=== PATIENT | male | born 2005 | race Caucasian/White ===

== ENCOUNTER 2023-02-10 19:49 | Emergency (ER) | payer OTHER, MEDICAID, SELFPAY ==
[2023-02-10 19:56] VITALS: BP 148/73; PULSE 110; RESP 18; TEMP 36.1; O2SAT 100; BMI 20.4
== END 2023-02-10 21:55 | disposition left against medical advice (07) ==
PROVIDERS: Emergency Provider Emergency Medicine; PCP Pediatrics
DX: M25.572 Pain in left ankle and joints of left foot (principal); S99.912A Unspecified injury of left ankle, initial encounter; X58.XXXA Exposure to other specified factors, initial encounter; Y93.9 Activity, unspecified; Y92.9 Unspecified place or not applicable; Y99.9 Unspecified external cause status
CPT/HCPCS: 73600; 73620; 99281; 99283

== ENCOUNTER 2024-05-18 15:19 | Outpatient (REF) | payer OTHER, MEDICAID, SELFPAY ==
[2024-05-18 15:22] LABS: MANUAL DIFF FLAG NO
[2024-05-18 15:25] LABS: Basophils Percent Auto 0.5 % (0-2); Eosinophils Absolute Auto 0.1 X10*3/uL (0.0-0.4); Eosinophils Percent Auto 2.1 % (0-4); Hematocrit 39.7 % (42.0-52.0); Hemoglobin 14.3 g/dl (14.0-18.0); Imm Gran Abs Auto 0.01 X10*3/uL (0.00-0.03); Imm Gran Pct Auto 0.2 % (0.0-0.4); Lymphocytes Percent Auto 32.5 % (20-40); Mean Corpuscular Hemoglobin 31.6 pg (27.0-33.0); Mean Corpuscular Volume 87.8 fL (80.0-98.0); Mean Platelet Volume 10.1 fL (9.4-12.4); Monocytes Absolute Auto 0.6 X10*3/uL (0.1-1.2); Monocytes Percent Auto 9.8 % (2-11); Neutrophils Absolute Auto 3.4 x10*3/uL (2.0-8.3); Neutrophils Percent Auto 54.9 % (45-73); Platelet Count 289 X10*3/uL (160-400); Red Blood Count 4.52 X10*6/uL (4.60-5.80); Red Cell Distribution Width 11.1 % (11.0-16.0); White Blood Count 6.1 X10*3/uL (4.8-10.8)
[2024-05-18 15:27] LABS: Appearance Urine Clear; Color Urine Yellow; Glucose Urine UA Negative (Negative); Leukocyte Esterase Urine Negative (Negative); Nitrite Urine Negative (Negative); PH 5.5 (5.0-9.0); Urine Blood Negative (Negative); Urine Ketones Negative (Negative); Urine Protein Negative (Neg-Trace)
[2024-05-18 15:32] LABS: Bacteria Urine None Seen (None Seen); Hyaline Casts Urine 0-2 /LPF (0-2); RBC Urine 0-2 /HPF (0-2); Squamous Epithelial Cell Urine 0-2 /HPF (0-2); WBC Urine 0-5 /HPF (0-5)
[2024-05-18 15:42] LABS: Alanine Aminotransferase 11 U/L (0-40); Albumin Level 4.4 g/dL (3.5-5.0); Alkaline Phosphatase 55 U/L (39-117); Anion Gap 11 (12-20); Aspartate Amino Transferase 14 U/L (5-37); Bilirubin Total 1.7 mg/dL (0.0-1.0); Blood Urea Nitrogen 10 mg/dL (9-16); Calcium 9.4 mg/dL (8.4-10.2); Carbon Dioxide 28 mmol/L (22-29); Chloride 104 mmol/L (96-108); Cholesterol 125 mg/dL (<200); Estimated Glomerular Filt Rate > 60; Glucose Fasting 101 mg/dL (60-99); HDL Cholesterol 39 mg/dL (>40); LDL Cholesterol Calculated 75 mg/dL (<100); Potassium 3.4 mmol/L (3.3-5.1); Sodium 140 mmol/L (135-145); Total Protein 7.3 g/dL (6.5-8.0); Triglycerides 55 mg/dL (<150)
== END 2024-05-18 15:20 | disposition home or self-care (01) ==
LOC: HO.LNP 15:19
PROVIDERS: Visit Provider Internal Medicine
DX: Z00.00 Encounter for general adult medical examination without abnormal findings (principal)
CPT/HCPCS: 80053; 80061; 81001; 85025

== ENCOUNTER 2025-05-14 10:43 | Outpatient (REF) | payer SELFPAY ==
--- OUTSIDE RECORDS SUMMARY | 2024-05-18 09:45 | XMS_ITS ---
Author Organization Ernesto Horne MD Address [address] [place], [place] [phone] Care Team Providers Care Director Data Analytics Name Role Phone Ernesto Horne Primary Care Provider Allergies Allergen (clinical drug ingredient) Drug/Non Drug Allergy documented on EMR Reaction Allergy Type Onset Date Status sulfamethoxazole / trimethoprim Bactrim GI Upset Drug Allergy Active Results Component Value Reference Range Notes Complete Blood Count Auto Di ff Reviewed date:05/18/2024 04:47:04 PM Interpretation: Performing Lab:[facility], [address] [place] [phone] Notes/Report: White Blood Count 6.1 4.8-10.8 X10*3/uL Red Blood Count 4.52 4.60-5.80 X10*6/uL Hemoglobin 14.3 14.0-18.0 g/dl Hematocrit 39.7 42.0-52.0 % Mean Corpuscular Volume 87.8 80.0-98.0 fL Mean Corpuscular Hemoglobin 31.6 27.0-33.0 pg Mean Corpuscular HGB Conc 36.0 31.0-36.0 g/dl Red Cell Distribution Width 11.1 11.0-16.0 % Platelet Count 289 160-400 X10*3/uL Mean Platelet Volume 10.1 9.4-12.4 fL Neutrophils Percent Auto 54.9 45-73 % Imm Gran Pct Auto 0.2 0.0-0.4 % Lymphocytes Percent Auto 32.5 20-40 % Monocytes Percent Auto 9.8 2-11 % Eosinophils Percent Auto 2.1 0-4 % Basophils Percent Auto 0.5 0-2 % NRBC Pct Auto 0.0 0.0-0.2 /100WBC Neutrophils Absolute Auto 3.4 2.0-8.3 x10*3/u L Imm Gran Abs Auto 0.01 0.00-0.03 X10*3/uL Lymphocytes Absolute Auto 2.0 1.2-4.9 X10*3/u L Monocytes Absolute Auto 0.6 0.1-1.2 X10*3/uL Eosinophils Absolute Auto 0.1 0.0-0.4 X10*3/u L Basophils Absolute Auto 0.0 0.0-0.2 X10*3/uL NRBC Abs Auto 0.000 0.0-0.012 X10*3/uL Urinalysis and Microscopic Reviewed date:05/18/2024 04:46:44 PM Interpretation: Performing Lab:[facility], [address] [place] [phone] Notes/Report: Color Urine Yellow Appearance Urine Clear PH 5.5 5.0-9.0 Glucose Urine UA Negative Negative mg/dL Urine Blood Negative Negative Specific [place] - Urine 1.020 1.005-1.025 Urine Protein Negative Neg-Trace mg/dL Urine Ketones Negative Negative mg/dL Nitrite Urine Negative Negative Leukocyte Esterase Urine Negative Negative RBC Urine 0-2 0-2 /HPF WBC Urine 0-5 0-5 /HPF Squamous Epithelial Cell Urine 0-2 0-2 /HPF Bacteria Urine None Seen None Seen Hyaline Casts Urine 0-2 0-2 /LPF Comprehensive [place]. Panel Fa Reviewed date:05/18/2024 04:47:35 PM Interpretation: Performing Lab:[facility], [address] [place] [phone] Notes/Report: Sodium 140 135-145 mmol/L Potassium 3.4 3.3-5.1 mmol/L Chloride 104 96-108 mmol/L Carbon Dioxide 28 22-29 mmol/L Anion Gap 11 12-20 Blood Urea Nitrogen 10 9-16 mg/dL Creatinine 1.00 0.5-1.4 mg/dL Estimated Glomerular Filt Rate > 60 NOTE: For -[place] individuals, multiply the result by 1.210. Chronic Kidney Disease: Estimated GFR < 60 mL/min/1.73m2 Severe Kidney Disease: Estimated GFR < 15 mL/min/1.73m2 Glucose Fasting 101 60-99 mg/dL A fasting glucose from 100-125 mg/dl is considered impaired (pre-diabetes). Calcium 9.4 8.4-10.2 mg/dL Bilirubin Total 1.7 0.0-1.0 mg/dL Aspartate Amino Transferase 14 5-37 U/L Alanine Aminotransferase 11 0-40 U/L Total Protein 7.3 6.5-8.0 g/dL Albumin Level 4.4 3.5-5.0 g/dL Alkaline Phosphatase 55 39-117 U/L Lipid Panel Reviewed date:05/18/2024 04:46:18 PM Interpretation: Performing Lab:[facility], [address] [place] [phone] Notes/Report: Triglycerides 55 <150 mg/dL Desirable Triglyceride: less than 150 mg/dL Borderline High Triglyceride 150-199 mg/dL High Triglyceride: 200-499 mg/dL Very High Triglyceride: greater than or equal to 5OO mg/dL Cholesterol 125 <200 mg/dL Desirable Cholesterol: less than 200 mg/dL Borderline High Cholesterol: 200-239 mg/dL High Cholesterol: greater than 239 mg/dL LDL Cholesterol Calculated 75 <100 mg/dL Desirable LDL: less than 100 mg/dL Near Optimal/Above Optimal LDL: 110-129 mg/dL Borderline High LDL: 130-159 mg/dL High LDL: 160-189 mg/dL Very High LDL: greater than or equal to 190 mg/dL HDL Cholesterol 39 >40 mg/dL Desirable HDL: greater than 40 mg/dL Note: This HDL assay may give artificially low results in patients with liver disease. REASON FOR VISIT New PT/ est care/ needs PE Medications Medication SIG (Take, Route, Fr equency, Duration) Notes Start Date End Date Status Tylenol 325 MG 1 tablet as needed Orally every 6 hrs Active Social History Tobacco Use: Social History Observation Description Date Details (start date - stop date) Never Smoker NA - NA Tobacco Use/Smoking Question Answer Notes Patient is a nonsmoker Additional Findings: Tobacco Non-User Cu rrent non-smoker, currently using no form of tobacco Alcohol Screen Question Answer Notes Did you have a drink containing alcohol in the p ast year? No Points 0 Interpretation Negative Problems No Known Problems Vital Signs Blood pressure systolic 122 mm Hg 05/18/20 24 Blood pressure diastolic 70 mm Hg 10/07/2 024 Height 74 in 05/18/2024 Weight 161 lbs 05/18/2024 BMI 20.67 kg/m2 05/18/2024 Encounters Encounter Location Date Provider Diagnosis Ernesto Horne MD [address] [place] [address] Drive [address] [place], [place] [phone] 05/18/2024 Ernesto Horne Physical exam, annual Z00.00 Assessments Encounter Date Diagnosis (ICD Code) Assessment Notes Treatment Notes Treatment Clinical Notes Section Notes 05/18/2024 Physical exam, annual (ICD-10 - Z00.00) patient here to establish relationship with new doctor. has never had any medical problems and is without complaints. Plan Of Treatment Treatment Notes Assessment Notes Physical exam, annual patient here to es tablish relationship with new doctor. has never had any medical problems and is without complaints. Next Appt Details Follow Up: 1 Year, Reason: Provider Name:Ernesto Liz ier, 05/27/2025 11:00:00 AM, [address] [place] [address], [address], [place], [place], [phone], Progress Notes * Hank WATTERSDOB: [birth year] (19 yo M)Acc No.[id number]:05/18/2024 Progress Notes Patient: Hank Brown Provider: Suzette Horne MD :2005 A ge:18 Y S ex:Male Date:05/18/2024 Address:[address] [place], [place] [phone] Subjective: * Chief Complaints: * N ew PT/ est care/ needs PE * HPI: D epression Screening: PHQ-9 L ittle interest or pleasure in doing things N ot at all, F eeling down, depressed, or hopeless N ot at all, T rouble falling or staying asleep, or sleeping too much N ot at all, F eeling tired or having little energy N ot at all, P oor appetite or overeating N ot at all, F eeling bad about yourself or that you are a failure, or have let yourself or your family down N ot at all, T rouble concentrating on things, such as reading the newspaper or watching television N ot at all, M oving or speaking so slowly that other people could have noticed; or the opposite, being so fidgety or restless that you have been moving around a lot more than usual N ot at all, T houghts that you would be better off or of hurting yourself in some way N ot at all, T otal Score 0 . S SANDER Questions: SDOH Questions I n the past year have you been worried about losing housing? N o, I n the past year have you or any family members you live with been unable to get any of the following when it was really needed? Check all that apply: N one. C ommunication Needs: Communication Needs D oes the patient have a hearing impairment N o, D oes the patient have a vision impairment? N o, D oes the patient have a cognition impairment? N o. S ymptom(s): patient is a 18 yo male , new patient, here to [facility], no medical problems, needs PE. * ROS: G eneral/Constitutional: Patient denies f atigue , headache. C hange in appetite?denies. C hills d enies. F ever d enies. O phthalmologic: Blurred vision d enies. D ischarge d enies. P ain d enies. E NT: Patient denies d ecreased sense of smell , any loss of taste , sore throat. D ecreased hearing d enies. S ore throat d enies. S wollen glands d enies. E ndocrine: Cold intolerance d enies. E xcessive thirst d enies. H eat intolerance d enies. W eight loss d enies. R espiratory: Cough d enies. S hortness of breath at rest d enies. S hortness of breath with exertion d enies. W heezing d enies. C ardiovascular: Chest pain at rest d enies. C hest pain with exertion?denies. I rregular heartbeat d enies. S hortness of breath d enies. ? G astrointestinal: Abdominal pain d enies. C hange in bowel habits d enies. D iarrhea d enies. N ausea d enies. R ectal bleeding d enies. V omiting d enies . G enitourinary: Blood in urine d enies. D ifficulty urinating d enies. F requent urination d enies. M usculoskeletal: Patient denies m uscle aches. P ainful joints d enies. W eakness d enies. P eripheral Vascular: Patient denies r ed and blue toes. S kin: Dry skin d enies. I tching d enies. D enies?Mole(s), changes in moles, new moles or any lesions of concern. D enies P hotosensitivity. R marilin d enies. N eurologic: Dizziness d enies. F ainting d enies. H eadache?denies. * Medical History: * Surgical History: * Hospitalization/Major Diagno stic Procedure: * Family History: F ather: alive 49 yrs. M other: alive 50 yrs. 1 brother(s) . . ather Healthy Mother Healthy. * Social History: T obacco Use: T obacco Use/Smoking P atient is a n onsmoker, A dditional Findings: Tobacco Non-User C urrent non-smoker, currently using no form of tobacco. D rugs/Alcohol: A lcohol Screen D id you have a drink containing alcohol in the past year? N o, P oints 0 , I nterpretation N egative. M iscellaneous: n o Children. no Exercise. Marital status: single. no Travel outside of the [place]. * Medications: T akingTylenol 325 MG Tablet 1 tablet as needed Orally every 6 hrsMedication List reviewed and reconciled with the patientTaking Tylenol 325 MG Tablet 1 tablet as needed Orally every 6 hrsMedication List reviewed and reconciled with the patient * Allergies: B actrim: GI Upsetyes[Allergies Verified] Objective: * Vitals: H t:74, Wt:161, BMI:20.67, BP:122/70. * Examination: G eneral Examination: GENERAL APPEARANCE: w ell developed, well nourished, in no acute distress. HEAD: n ormocephalic, atraumatic. EYES: p upils equal, round, reactive to light and accommodation, sclera non-icteric. EARS: n ormal. ORAL CAVITY: m ucosa moist. THROAT: c lear. NECK/THYROID: n kiara supple, full range of motion, no cervical lymphadenopathy, no bruits. SKIN: w arm and dry, no suspicious lesions. HEART: r egular rate and rhythm, S1, S2 normal, no murmurs.? LUNGS: c lear to auscultation bilaterally. ABDOMEN: s oft, nontender, nondistended, bowel sounds present, normal, no organomegaly , no masses palpable. RECTAL EXAM: n ot examined. MALE GENITOURINARY: c ircumcised, no penile lesions or discharge, testes descended bilaterally. EXTREMITIES: n o clubbing, cyanosis, or edema. NEUROLOGIC: n onfocal, motor strength normal upper and lower extremities, sensory exam intact. Assessment: * Assessment: 1. P hysical exam, annual - Z00.00 (Primary) Plan: * Treatment: ?LAB: Lipid Panel Notes: patient here to establish relationship with new doctor. has never had any medical problems and is without complaints.?? * Procedure Codes: 3 6415 VENIPUNCT, ROUTINE* * Follow Up: 1 Year * * Sign off status: Completed true * Provider: Suzette Horne MD Date: Generated for Deneen villanueva/Matthew/Robitting on: 11:43 AM EDT History and Physical Notes * HPI (History of Present Illness) Category Sub-Category Detail Notes Category Not es Symptom(s) patient is a 18 yo male , new patient, here to [facility], no medical problems, needs PE Depression Screening PHQ-9 Little inte rest or pleasure in doing things: Not at all Feeling down, depressed, or hopeless: No t at all Trouble falling or staying asleep, or sl eeping too much: Not at all Feeling tired or having little energy: N ot at all Poor appetite or overeating: Not at all Feeling bad about yourself o r that you are a failure, or have let yourself or your family down: Not at all Trouble concentrating on thi ngs, such as reading the newspaper or watching television: Not at all Moving or speaking so slowly that other people could have noticed; or the opposite, being so fidgety or restless that you have been moving around a lot more than usual: Not at all Thoughts that you would be b sallie off or of hurting yourself in some way: Not at all Total Score: 0 SDOH Questions SDOH Questions In the past year have you been worried about losing housing?: No In the past year have you or any family members you live with been unable to get any of the following when it was really needed? Check all that apply:: None Communication Needs Communication Needs Does the patient have a hearing impairment: No Does the patient have a vision impairmen t?: No Does the patient have a cognition impair ment?: No Examination Category Sub-Category Detail Notes Category Not es General Examination GENERAL APPEARANCE: well dev eloped, well nourished, in no acute distress HEAD: normocephalic, atrau matic EYES: pupils equal, round, reactive to light and accommodation, sclera non-icteric EARS: normal THROAT: clear NECK/THYROID: neck supple, full ra nge of motion, no cervical lymphadenopathy, no bruits HEART: regular rate and rhy thm, S1, S2 normal, no murmurs LUNGS: clear to auscultatio n bilaterally ABDOMEN: soft, nontender, non distended, bowel sounds present, normal, no organomegaly , no masses palpable NEUROLOGIC: nonfocal, motor stre ngth normal upper and lower extremities, sensory exam intact SKIN: warm and dry, no selvin picious lesions EXTREMITIES: no clubbing, cyanosi s, or edema MALE GENITOURINARY: circumcised, no peni le lesions or discharge, testes descended bilaterally RECTAL EXAM: not examined ORAL CAVITY: mucosa moist
--- OUTSIDE RECORDS SUMMARY | 2025-05-14 03:15 | XMS_ITS ---
Author Organization Ernesto Horne MD Address [address] [place], [place] [phone] Care Team Providers Care Coremaker Floor Name Role Phone Ernesto Horne Primary Care Provider Results Component Value Reference Range Notes Complete Blood Count Auto Di ff (Not yet reviewed by provider) Interpretation: Performing Lab:[facility], [address] [place] [phone] Notes/Report: White Blood Count 4.8 4.8-10.8 X10*3/uL Red Blood Count 4.56 4.60-5.80 X10*6/uL Hemoglobin 14.3 14.0-18.0 g/dl Hematocrit 39.8 42.0-52.0 % Mean Corpuscular Volume 87.3 80.0-98.0 fL Mean Corpuscular Hemoglobin 31.4 27.0-33.0 pg Mean Corpuscular HGB Conc 35.9 31.0-36.0 g/dl Red Cell Distribution Width 11.2 11.0-16.0 % Platelet Count 243 160-400 X10*3/uL Mean Platelet Volume 10.7 9.4-12.4 fL Neutrophils Percent Auto 44.0 45-73 % Imm Gran Pct Auto 0.0 0.0-0.4 % Lymphocytes Percent Auto 41.2 20-40 % Monocytes Percent Auto 11.3 2-11 % Eosinophils Percent Auto 2.9 0-4 % Basophils Percent Auto 0.6 0-2 % NRBC Pct Auto 0.0 0.0-0.2 /100WBC Neutrophils Absolute Auto 2.1 2.0-8.3 x10*3/u L Imm Gran Abs Auto 0.00 0.00-0.03 X10*3/uL Lymphocytes Absolute Auto 2.0 1.2-4.9 X10*3/u L Monocytes Absolute Auto 0.5 0.1-1.2 X10*3/uL Eosinophils Absolute Auto 0.1 0.0-0.4 X10*3/u L Basophils Absolute Auto 0.0 0.0-0.2 X10*3/uL NRBC Abs Auto 0.000 0.0-0.012 X10*3/uL Lipid Panel Reviewed date:05/14/2025 11:38:37 AM Interpretation: Performing Lab:[facility], [address] [place] [phone] Notes/Report: Triglycerides 91 <150 mg/dL Desirable Triglyceride: less than 150 mg/dL Borderline High Triglyceride 150-199 mg/dL High Triglyceride: 200-499 mg/dL Very High Triglyceride: greater than or equal to 5OO mg/dL Cholesterol 128 <200 mg/dL Desirable Cholesterol: less than 200 mg/dL Borderline High Cholesterol: 200-239 mg/dL High Cholesterol: greater than 239 mg/dL LDL Cholesterol Calculated 70 <100 mg/dL Desirable LDL: less than 100 mg/dL Near Optimal/Above Optimal LDL: 110-129 mg/dL Borderline High LDL: 130-159 mg/dL High LDL: 160-189 mg/dL Very High LDL: greater than or equal to 190 mg/dL HDL Cholesterol 40 >40 mg/dL Desirable HDL: greater than 40 mg/dL Note: This HDL assay may give artificially low results in patients with liver disease. UA ClnCatch+Micro w/rflx Cul t Reviewed date:05/14/2025 11:42:30 AM Interpretation: Performing Lab:[facility], [address] [place] [phone] Notes/Report: Urine, Clean Catch Color Urine Yellow Appearance Urine Clear PH 6.0 5.0-9.0 Glucose Urine UA Negative Negative mg/dL Urine Blood Negative Negative Specific [place] - Urine 1.020 1.005-1.025 Urine Protein Negative Neg-Trace mg/dL Urine Ketones Negative Negative mg/dL Nitrite Urine Negative Negative Leukocyte Esterase Urine Negative Negative RBC Urine 0-2 0-2 /HPF WBC Urine 0-5 0-5 /HPF Squamous Epithelial Cell Urine 0-2 0-2 /HPF Bacteria Urine None Seen None Seen Hyaline Casts Urine 0-2 0-2 /LPF REASON FOR VISIT FASTING LABS Problems No Known Problems Encounters Encounter Location Date Provider Diagnosis Ernesto Horne MD [address] [place] [address] [place] [phone] 05/14/2025 Ernesto Horne Blood tests for routine general physical examination Z00.00 Assessments Encounter Date Diagnosis (ICD Code) Assessment Notes Treatment Notes Treatment Clinical Notes Section Notes 05/14/2025 Blood tests for routine general physical examination (ICD-10 - Z00.00) Plan Of Treatment Pending Test Test Name Order Date Complete Blood Count Auto Diff Comprehensive [place]. Panel Fast 5 Next Appt Details Provider Name:Ernesto Liz ier, 05/27/2025 11:00:00 AM, [address] [place] [address], Suite [facility], [place], [place], [phone], Progress Notes * Hank WATTERSDOB: [birth year] (19 yo M)Acc No.[id number]:05/14/2025 Progress Note Patient: Hank HUTSON Provider: Suzette Horne MD :2005 A ge:19 Y S ex:Male Date:05/14/2025 Address:[address] [place], [place] [phone] Subjective: * Chief Complaints: * 1 . FASTING LABS. * Medical History: Objective: * Vitals: Assessment: * Assessment: 1. B lood tests for routine general physical examination - Z00.00 (Primary) Plan: * Treatment: * Procedure Codes: 3 6415 VENIPUNCT, ROUTINE* * * The named appointment provid er may or may not be the originator of this progress note, and it is not deemed complete until electronically signed by the appointment provider. Sign off status: Pending * Provider: Suzette Horne MD Date: 1 Generated for Deneen villanueva/Matthew/eTransmitting on: 1 11:43 AM EDT
[2025-05-14 10:45] LABS: MANUAL DIFF FLAG NO
[2025-05-14 10:54] LABS: Hematocrit 39.8 % (42.0-52.0); Hemoglobin 14.3 g/dl (14.0-18.0); Imm Gran Abs Auto 0.00 X10*3/uL (0.00-0.03); Imm Gran Pct Auto 0.0 % (0.0-0.4); Lymphocytes Absolute Auto 2.0 X10*3/uL (1.2-4.9); Mean Corpuscular HGB Conc 35.9 g/dl (31.0-36.0); Mean Corpuscular Hemoglobin 31.4 pg (27.0-33.0); Mean Corpuscular Volume 87.3 fL (80.0-98.0); NRBC Abs Auto 0.000 X10*3/uL (0.0-0.012); NRBC Pct Auto 0.0 /100WBC (0.0-0.2); Platelet Count 243 X10*3/uL (160-400); Red Blood Count 4.56 X10*6/uL (4.60-5.80); White Blood Count 4.8 X10*3/uL (4.8-10.8)
[2025-05-14 11:13] LABS: Appearance Urine Clear; Glucose Urine UA Negative (Negative); PH 6.0 (5.0-9.0); Specific Gravity - Urine 1.020 (1.005-1.025)
[2025-05-14 11:36] LABS: Alanine Aminotransferase 22 U/L (0-40); Albumin Level 4.8 g/dL (3.5-5.0); Alkaline Phosphatase 58 U/L (39-117); Anion Gap 12 (12-20); Aspartate Amino Transferase 23 U/L (5-37); Blood Urea Nitrogen 13 mg/dL (9-16); Calcium 9.0 mg/dL (8.4-10.2); Carbon Dioxide 25 mmol/L (22-29); Chloride 106 mmol/L (96-108); Cholesterol 128 mg/dL (<200); Estimated Glomerular Filt Rate > 60; HDL Cholesterol 40 mg/dL (>40); Potassium 3.5 mmol/L (3.3-5.1); Sodium 139 mmol/L (135-145); Total Protein 7.2 g/dL (6.5-8.0); Triglycerides 91 mg/dL (<150)
--- OUTSIDE RECORDS SUMMARY | 2025-05-14 11:43 | XMS_ITS | Patient Health Record ---
Author Organization Ernesto Horne MD Address [address] [place], [place] [phone] Care Team Providers Care Dealer Compliance Representative Name Role Phone Ernesto Horne Primary Care Provider [phone] Allergies Allergen (clinical drug ingredient) Drug/Non Drug Allergy documented on EMR Reaction Allergy Type Onset Date Status sulfamethoxazole / trimethoprim Bactrim GI Upset Drug Allergy Active Results Component Value Reference Range Notes Complete Blood Count Auto Di ff Reviewed date:05/18/2024 04:47:04 PM Interpretation: Performing Lab:[facility], [address] [place] [phone] Notes/Report: White Blood Count 6.1 4.8-10.8 X10*3/uL [...] Microscopic Reviewed date:05/18/2024 04:46:44 PM Interpretation: Performing Lab:[facility], [address] [place] [phone] Notes/Report: Color Urine Yellow Appearance Urine Clear PH 5.5 5.0-9.0 Glucose Urine UA Negative Negative mg/dL Urine Blood Negative Negative Specific [place] - Urine 1.020 1.005-1.025 Urine Protein Negative Neg-Trace mg/dL Urine Ketones Negative Negative mg/dL Nitrite Urine Negative Negative Leukocyte Esterase Urine Negative Negative RBC Urine 0-2 0-2 /HPF WBC Urine 0-5 0-5 /HPF Squamous Epithelial Cell Urine 0-2 0-2 /HPF Bacteria Urine None Seen None Seen Hyaline Casts Urine 0-2 0-2 /LPF Comprehensive [place]. Panel Fa Reviewed date:05/18/2024 04:47:35 PM Interpretation: Performing Lab:[facility], [address] [place] [phone] Notes/Report: Sodium 140 135-145 mmol/L Potassium 3.4 3.3-5.1 mmol/L Chloride 104 96-108 mmol/L Carbon Dioxide 28 22-29 mmol/L Anion Gap 11 12-20 Blood Urea Nitrogen 10 9-16 mg/dL Creatinine 1.00 0.5-1.4 mg/dL Estimated Glomerular Filt Rate > 60 NOTE: For -Thai individuals, multiply the result by 1.210. Chronic [...] Panel Reviewed date:05/18/2024 04:46:18 PM Interpretation: Performing Lab:[address] [phone] Notes/Report: Triglycerides 55 <150 mg/dL Desirable Triglyceride: [...] low results in patients with liver disease. Comprehensive Met. Panel (No t yet reviewed by provider) Interpretation: Performing Lab:[address] [phone] Notes/Report: Sodium 139 135-145 mmol/L Potassium 3.5 3.3-5.1 mmol/L Chloride 106 96-108 mmol/L Carbon Dioxide 25 22-29 mmol/L Anion Gap 12 12-20 Blood Urea Nitrogen 13 9-16 mg/dL Creatinine 0.93 0.5-1.4 mg/dL Estimated Glomerular Filt Rate > 60 Chronic Kidney Disease: Estimated GFR < 60 mL/min/1.73m2 Severe Kidney Disease: Estimated GFR < 15 mL/min/1.73m2 Glucose Random 96 60-115 mg/dL Calcium 9.0 8.4-10.2 mg/dL Bilirubin Total 1.1 0.0-1.0 mg/dL Aspartate Amino Transferase 23 5-37 U/L Alanine Aminotransferase 22 0-40 U/L Total Protein 7.2 6.5-8.0 g/dL Albumin Level 4.8 3.5-5.0 g/dL Alkaline Phosphatase 58 39-117 U/L Complete Blood Count Auto Di ff (Not yet reviewed by provider) Interpretation: Performing Lab:[facility], [address] [place] [phone] Notes/Report: White Blood Count 4.8 4.8-10.8 X10*3/uL [...] Panel Reviewed date:05/14/2025 11:38:37 AM Interpretation: Performing Lab:[facility], [address] [place] [phone] Notes/Report: Triglycerides 91 <150 mg/dL Desirable Triglyceride: [...] t Reviewed date:05/14/2025 11:42:30 AM Interpretation: Performing Lab:[facility], [address] [place] [phone] Notes/Report: Urine, Clean Catch Color Urine Yellow Appearance Urine Clear PH 6.0 5.0-9.0 Glucose Urine UA Negative Negative mg/dL Urine Blood Negative Negative Specific [place] - Urine 1.020 1.005-1.025 Urine Protein Negative Neg-Trace mg/dL Urine Ketones Negative Negative mg/dL Nitrite Urine Negative Negative Leukocyte Esterase Urine Negative Negative RBC Urine 0-2 0-2 /HPF WBC Urine 0-5 0-5 /HPF Squamous Epithelial Cell Urine 0-2 0-2 /HPF Bacteria Urine None Seen None Seen Hyaline Casts Urine 0-2 0-2 /LPF Reason For Referral No Information Medications Medication SIG (Take, Route, Fr equency, [...] No Known Problems Vital Signs Blood pressure diastolic 70 mm Hg 05/18/2024 Height 74 in 05/18/2024 Blood pressure systolic 122 mm Hg 05/18/2024 Weight 161 lbs 05/18/2024 BMI 20.67 kg/m2 05/18/2024 Encounters Encounter Location Date Provider Diagnosis Ernesto Horne MD [address] [place] [address] [place] [phone] 05/14/2025 Ernesto Horne Blood tests for routine general physical examination Z00.00 Ernesto Horne MD [address] [place] [address] [place] [phone] 05/18/2024 Ernesto Horne Physical exam, annual Z00.00 Assessments Encounter Date Diagnosis (ICD Code) Assessment Notes Treatment Notes Treatment Clinical Notes Section Notes 05/14/2025 Blood tests for routine general physical examination (ICD-10 - Z00.00) 05/18/2024 Physical exam, annual (ICD-10 - Z00.00) patient here to establish relationship with new doctor. has never had any medical problems and is without complaints. Plan Of Treatment Pending Test Test Name Order Date Complete Blood Count Auto Diff Comprehensive Met. Panel 05/14/2025 Comprehensive [place]. Panel Fast Next Appt Details Provider Name:Ernesto al, 05/27/2025 11:00:00 AM, [address] [place] [address], Suite [facility], [place], [place], [phone], Insurance Providers Payer Name Payer Address Payer Phone Subscriber Number Group Number Insured Name Patient Relationship to Insured Coverage Start Date Coverage End Date [employer] [address] [place], [place] [id number] Hank Watters Self - patient is the insured
--- OUTSIDE RECORDS SUMMARY | 2025-05-14 11:44 | XMS_ITS | Clinical Summary ---
Author Organization [facility] Address [address] [place] [id number] Phone Care Team Providers Care Aviation Safety Inspector Name Role Phone Unavailable Primary Care Provider Unavailabl e Allergies Active Allergy Reactions Criticality Noted Date Comments Sulfamethoxazole-Trimethoprim 2017 Medications acetaminophen 325 MG tablet Take 325 mg by mouth every 6 (six) hours as needed for mild pain. Active Active Problems Problem Noted Date Diagnosed Date Closed fracture of nasal bones 10/03/2021 Overview (10/03/2021): normal function, very faint left sided swelling-plan ENT f/up- referral placed by ER already to [facility]? Personal history of COVID-19 10/03/2021 Overview (10/03/2021): Moderate infection with no CV sx of concern, normal exercise tolerance and normal exam today Resolved Problems Problem Noted Date Diagnosed Date Resolved Date Mild persistent asthma without complication 12/13/2015 04/07/2018 Immunizations Immunization Administration Dates Next Due DTaP 06/12/2007, 5,07/23/2004,11/25,2003 HPV Vaccine 9 Valent 02/09/2016 HPV, Quadrivalent 02/04/2015 Hep A, ped/adol 06/30/2010,05/28/2008 Hep B, ped/adol 2003,2003,2003 Hib (HbOC) 2003,2003,2003 IPV 06/12/2007, 4,2003,07/22 Influenza Split 09/02/2012 Influenza, injectable, quadrivalent 12/13/2015 Influenza, injectable, quadr ivalent, preservative free 04/20/2022,04/20/2021,04/14/2020,04/09,06/24/2018,04/19/2017,06/25/2013 Influenza, injectable, trivalent 06/12/2007 Influenza, intranasal, trivalent 06/24/2009 MMR 06/12/2007,06/01/2004 Meningococcal B Trumenba 04/20/2022,04/20/2021 Meningococcal Conj (Menactra) MCV4P 04/14/2020,0 02/04/2015 Pneumococcal Conjugate 10/19/2004,2003,2003,07/22 Tdap 02/04/2015 Varicella 06/12/2007,10/19/2004 Family History Medical History Relation Name Comments No Known Problems Brother Fernando No Known Problems Father Adriano No Known Problems Mother Hernan Relation Name Status Comments Brother Fernando Alive Brother: Alive and well Father Adriano Alive Father: Alive a nd well Mother Hernan Alive Mother: Migrain es Other Family history of *Dental caries, Family history of ADD/ADHD, No family history of *CVA/Stroke, Family history of Diabetes mellitus, No family history of *Heart Disease, No family history of *Sudden /[place] under 55, Family history of Obesity Social History Tobacco Use Types Packs/Day Years Used Date Smoking Tobacco: Never Smokeless Tobacco: Never Comments:Never smoker Alcohol Use Standard Drinks/Week Comments No 0 (1 standard drink = 0.6 oz pur e alcohol) Hunger/Food Answer Date Recorded In the last 12 months, did y ou or your family ever eat less than you felt you should because there wasn't enough money for food? No 04/20/2021 Stable Housing Answer Date Recorded Are you worried that in the next 2 months you may not have stable housing? No 04/20/2021 Transportation Concerns Answer Date Rec orded In the last 12 months, have you or your family ever had to go without healthcare because you didn't have a way to get there? No 04/20/2021 Hazards in Home Answer Date Recorded Think about the place you li ve. Do you have problems with any of the following? Pests (mice or roaches), mold, no/not working smoke detectors, water leaks, no window guards. No 2020 Financing Utilities Answer Date Recorde d In the last 12 months, has t he electric, gas, oil, or water company threatened to shut off your services in your home? No 04/20/2021 Safety at Home Answer Date Recorded Are you or your family worried about feeling saf e in your home? No 04/20/2021 Outside Support Answer Date Recorded Do you feel that you need mo re support from other people or programs to help you care for yourself or your family? No 04/20/2021 Understanding Health Concerns Answer Da te Recorded Do you need help understandi ng your or your child's healthcare needs (diagnosis, medications, plan, etc.)? No 04/20/2021 Financing Health Concerns Answer Date R ecorded In the last 12 months, was t here a time when your child needed to see a doctor or get medications or supplies but could not because of cost? No 04/20/2021 Missing School or Work Answer Date Fausto rded Did you or your child miss s chool or work because of a health problem that could have been avoided? No 04/20/2021 Sex and Gender Information Value Date Recorded Sex Assigned at Male 04/09/2019 5:11 PM EDT Legal Sex Male 5:11 PM EDT Gender Identity Male 04/09/2019 5:11 PM EDT Sexual Orientation Straight 04/09/2019 5: 11 PM EDT Last Filed Vital Signs Vital Sign Reading Time Taken Comments Blood Pressure 128/63 04/20/2022 4:06 PM EDT Pulse 63 04/20/2022 4:06 PM EDT Temperature 36.8 C (98.2 F) 10/03/2021 2:29 PM EST Respiratory Rate - - Oxygen Saturation 99% 11/21/2018 9:30 AM EDT Inhaled Oxygen Concentration - - Weight 67.5 kg (148 lb 12.8 oz) 04/20/2022 4:06 PM EDT Height 185.5 cm (6' 1.03 ) 04/20/2022 4:06 PM ED T Body Mass Index 19.62 04/20/2022 4:06 PM EDT Plan of Treatment Health Maintenance Due Date Last Done Comments DTaP,Tdap,and Td Vaccines (7 - Td or Tdap) 02/04/2025 02/04/2015, 06/12/2007, 11/30/2004, Additional history exists Influenza Vaccines (#1) 2025 04/20/20, 04/20/2021, 04/14/2020, Additional history exists COVID-19 Vaccine ( season) 2025 01/24/2022, 03/06/2021, 02/13/2021 HIB Vaccines Aged Out 2003, 09/12, 2003 No longer eligible based on patient's age to complete this topic Hepatitis B Vaccines Completed 2003, 2003, 2003 Pneumococcal Vaccine Completed 10/19/2004, 06/01/2004, 2003, Additional history exists IPV Vaccines Completed 06/12/2007, 05/13, 2003, Additional history exists MMR Vaccines Completed 06/12/2007, 06/01/2004 Varicella Vaccines Completed 06/12/2007, 10/19/2004 Hepatitis A Vaccines Completed 06/30/2010, 05/28/20 08 HPV Vaccines Completed 02/09/2016, 02/04/2015 Meningococcal Vaccine Completed 04/14/2020, 015 Men B Vaccine Completed 04/20/2022, 04/20/2021 Insurance [facility]
--- OUTSIDE RECORDS SUMMARY | 2025-05-14 11:44 | XMS_ITS | Encounter Summary ---
Author Organization [facility] Address [address] [place] [id number] Phone Care Team Providers Care Carbonating Stone Cleaner Name Role Phone Janina Graf MD Primary Care Provider [phone] Encounter Details Date Type Department Care Team (Late st Contact Info) Description 10/20/2014 Documentation [facility] [place] Family Medicine [address] [place], [place] [id number] Family Medicine, Physician [address] [id number] Social History Tobacco Use Types Packs/Day Years Used Date Smoking Tobacco: Never Assessed Sex and Gender Information Value Date Recorded Sex Assigned at Male 04/09/2019 5:11 PM EDT Legal Sex Male 5:11 PM EDT Gender Identity Male 04/09/2019 5:11 PM EDT Sexual Orientation Straight 04/09/2019 5: 11 PM EDT documented as of this encounter Plan of Treatment Not on file documented as of this encounter Visit Diagnoses Not on filedocumented in this encounter Care Teams Carbonating Stone Cleaner Relationship Specialty Start Date End Date Janina Graf MD [address] [place] [id number] PCP - General Pediatrics 08/27/19 10/31/23 documented as of this encounter
--- OUTSIDE RECORDS SUMMARY | 2025-05-14 11:44 | XMS_ITS | Encounter Summary ---
Author Organization [facility] Address [address] [place] [address] Phone Care Team Providers Care Labourers Name Role Phone Janina Graf MD Primary Care Provider Encounter Details Date Type Department Care Team (Late st Contact Info) Description 03/28/2017 Conversion Encounter Era Pediatric [facility] [address] [place] [address] Social History Tobacco Use Types Packs/Day Years Used Date Smoking Tobacco: Never Comments:Never smoker Sex and Gender Information Value Date Recorded Sex Assigned at Male 04/09/2019 5:11 PM EDT Legal Sex Male 5:11 PM EDT Gender Identity Male 04/09/2019 5:11 PM EDT Sexual Orientation Straight 04/09/2019 5: 11 PM EDT documented as of this encounter Plan of Treatment Not on file documented as of this encounter Visit Diagnoses Not on filedocumented in this encounter Care Teams Labourers Relationship Specialty Start Date End Date Janina Graf MD [address] [place] [address] PCP - General Pediatrics 08/27/19 10/31/23 documented as of this encounter
--- OUTSIDE RECORDS SUMMARY | 2025-05-14 11:44 | XMS_ITS | Encounter Summary ---
Author Organization [facility] Address [address] [place] [id number] Phone Care Team Providers Care Script Worker Name Role Phone Janina Graf MD Primary Care Provider [phone] Encounter Details Date Type Department Care Team (Late st Contact Info) Description 02/04/2017 [place]ation [facility] [place] [address] [place] [address] Family Medicine, Physician [address] [id number] Social History Tobacco Use Types Packs/Day Years [...] on filedocumented in this encounter Care Teams Script Worker Relationship Specialty Start Date End Date Janina Graf MD [address] [place] [id number] PCP - General Pediatrics 08/27/19 10/31/23 documented as of this encounter
== END 2025-05-14 10:44 | disposition home or self-care (01) ==
LOC: HO.LNP 10:43
PROVIDERS: Visit Provider Internal Medicine
DX: Z00.00 Encounter for general adult medical examination without abnormal findings (principal); Z13.6 Encounter for screening for cardiovascular disorders
CPT/HCPCS: 80053; 80061; 81001; 85025